=== PATIENT | male | born 1995 | race Caucasian/White ===

== ENCOUNTER 2018-05-01 15:19 | Emergency (ER) | payer OTHER ==
[~2018-05-01] VITALS: Ht 182.9 cm; Wt 88.0 kg
[2018-05-01] MEDS ORDERED: VENL150C2 PO (15:44)
[2018-05-01] MEDS ORDERED: PROP20TA7 PO (15:44)
[2018-05-01] MEDS ORDERED: TRAZ-214 PO (15:44)
--- NOTE | 2018-05-01 15:56 | NUR ---
DR FERRER AT THE BEDSIDE FOR MSE.
[2018-05-01] MEDS ORDERED: ONDANSETRON ODT 4 MG TAB.RAPDIS ONE (15:58)
[2018-05-01] MEDS ORDERED: ONDANSETRON ODT 4 MG TAB.RAPDIS SL ONE (16:00)
[2018-05-01 17:05] VITALS: BP 131/77
--- NOTE | 2018-05-01 17:06 | NUR ---
Patient discharged to home in stable conditon. Written and verbal after care instructions given. Patient verbalizes understanding of instructions. Pt called [facility] for pickup. Awaiting in waiting room for pickup.
== END 2018-05-01 17:11 | disposition home or self-care (01) ==
LOC: ER 15:19
DX: S06.0X0A Concussion without loss of consciousness, initial encounter (principal); S00.03XA Contusion of scalp, initial encounter; S61.250A Open bite of right index finger without damage to nail, initial encounter; Z79.899 Other long term (current) drug therapy; W55.01XA Bitten by cat, initial encounter; W01.198A Fall on same level from slipping, tripping and stumbling with subsequent striking against other object, initial encounter; Y93.89 Activity, other specified; Y92.89 Other specified places as the place of occurrence of the external cause; Y99.8 Other external cause status
CPT/HCPCS: 70450; 70486; A4663; Q0162